=== PATIENT | female | born 1995 | race Caucasian/White ===

== ENCOUNTER 2016-11-10 15:21 | Emergency (ER) | payer OTHER ==
[~2016-11-10] VITALS: Ht 162.6 cm; Wt 61.2 kg
[2016-11-10 15:21] VITALS: BP 128/75
== END 2016-11-10 16:36 | disposition home or self-care (01) ==
LOC: ER 15:23
DX: G56.02 Carpal tunnel syndrome, left upper limb (principal); H92.01 Otalgia, right ear
CPT/HCPCS: A4606; Z7502; Z7610